=== PATIENT | male | born 1970 | race Caucasian/White ===

== ENCOUNTER 2018-03-29 13:25 | Emergency (ER) | payer MEDICAID ==
[~2018-03-29] VITALS: Ht 167.6 cm; Wt 66.1 kg
[2018-03-29 13:27] VITALS: BP 121/80
[2018-03-29] MEDS ORDERED: BACITRACIN ZINC OINT 500U/GM, 0.9 GM ONE (13:57)
[2018-03-29] MEDS ORDERED: IBUPROFEN 200 MG TABLET PO ONE (14:00)
== END 2018-03-29 14:25 | disposition home or self-care (01) ==
LOC: ED 14:19
DX: S90.811A Abrasion, right foot, initial encounter (principal); S90.821A Blister (nonthermal), right foot, initial encounter; F17.210 Nicotine dependence, cigarettes, uncomplicated; X58.XXXA Exposure to other specified factors, initial encounter; Y93.89 Activity, other specified; Y99.8 Other external cause status; Y92.89 Other specified places as the place of occurrence of the external cause
CPT/HCPCS: 99283